=== PATIENT | male | born 1955 ===

== ENCOUNTER 2020-09-09 17:32 | Emergency (ER) | payer SELFPAY ==
[~2020-09-09] VITALS: Ht 165.1 cm; Wt 68.0 kg
[2020-09-09 18:16] LABS: Urine Bacteria MOD /hpf (None Seen); Urine Blood 2+ /uL (Negative); Urine Specific Gravity 1.012 (1.001-1.035); Urine WBC 969 /hpf (0 - 3); Urine WBC Clumps PRESENT /hpf (None Seen)
[2020-09-09 19:10] VITALS: BP 125/74
== END 2020-09-09 19:24 | disposition home or self-care (01) ==
LOC: ER 17:32
DX: N39.0 Urinary tract infection, site not specified (principal); I10 Essential (primary) hypertension
CPT/HCPCS: 81001